=== PATIENT | male | born 1945 | race Caucasian/White ===

== ENCOUNTER 2018-01-15 12:09 | Emergency (ER) | payer OTHER, MEDICARE, BC ==
--- NOTE | 2018-01-15 12:24 | EDM.PDOC ---
ED HPI GENERAL MEDICAL PROBLEM - General Chief Complaint: General Stated Complaint: [id number] DIZZY THROWING UP Time Seen by Provider: 01/15/18 12:24 Source of Information: Reports: Patient, Family, Old Records, RN, RN Notes Reviewed History Limitations: Reports: No Limitations - History of Present Illness INITIAL COMMENTS - FREE TEXT/NARRATIVE: [place] with c/o waking at 0430HRS this morning with "room spin" dizziness. Pt states that when he tried to get up and any time he moves around, or lays flat on his back everything starts spinning, he gets nauseated and has vomited several times. He denies headache, visual changes, slurred speech, difficulty swallowing, sinus/nasal congestion, pain or pressure, muffled hearing or ear pain/pressure. He denies any orthostatic dizziness, palpitations, CP, SOB, edema, rapid or slow HR, lightheadedness or syncope. Pt states his mother has vertigo, and this seems similar. Pt lives in [place] and is here for a fishing tournament. Last evening his boat ride coming in was "very bouncy and rough" and he wonders if that may have "set off the dizziness". Onset: Today Duration: Recurring, Waxing/Waning Location: Reports: Generalized Quality: Reports: Other Severity: Severe Improves with: Reports: Rest (sitting still) Worsens with: Reports: Movement (and position) Associated Symptoms: Reports: No Other Symptoms - Related Data Allergies Allergy/AdvReac Type Severity Reaction Status Date / Time No Known Allergies Allergy Verified 01/15/18 12:22 Home Meds: Home Meds Atenolol/Chlorthalidone [Tenoretic 50 Tablet] 1 tab PO DAILY 01/15/18 [History] Brimonidine Tartrate/Timolol [Combigan Eye Drops] 2 drop OP DAILY 01/15/18 [ History] Brinzolamide [Azopt] 1 drop EYELF DAILY 01/15/18 [History] Fenofibrate 200 mg PO BEDTIME 01/15/18 [History] Latanoprost [Xalatan] 1 drop OP DAILY 01/15/18 [History] Levothyroxine [Sythroid] 100 mcg PO DAILY 01/15/18 [History] Lisinopril [Prinivil] 5 mg PO DAILY 01/15/18 [History] Pioglitazone HCl [Actos] 15 mg PO BEDTIME 01/15/18 [History] Potassium Chloride [Klor-Con 10] 10 meq PO BID 01/15/18 [History] Tadalafil [Cialis] 5 mg PO DAILY PRN 01/15/18 [History] atorvaSTATin [Lipitor] 0 mg PO DAILY 01/15/18 [History] glipiZIDE [Glipizide ER] 10 mg PO DAILY 01/15/18 [History] metFORMIN HCl [Metformin HCl] 1,000 mg PO BID 01/15/18 [History] Past Medical History HEENT History: Reports: Cataract, Glaucoma, Hard of Hearing Cardiovascular History: Reports: High Cholesterol, Hypertension Endocrine/Metabolic History: Reports: Diabetes, Type II, Hypothyroidism, Obesity /BMI 30+ - Past Surgical History HEENT Surgical History: Reports: Cataract Surgery (Rt) Social & Family History - Family History Neurological: Reports: Vertigo (mother) - Living Situation & Occupation Living situation: Reports: , with Spouse Occupation: Retired ED ROS GENERAL - Review of Systems Review Of Systems: ROS reveals no pertinent complaints other than HPI. ED EXAM, GENERAL - Physical Exam Exam: See Below Exam Limited By: No Limitations General Appearance: Alert, WD/WN, No Apparent Distress, Obese Eye Exam: Bilateral Eye: EOMI, Nystagmus (Rt lateral gaze), PERRL Ears: Normal External Exam, Hearing Grossly Normal (with hearing aids) Nose: Normal Inspection, Normal Mucosa, No Blood Throat/Mouth: Normal Inspection, Normal Lips, Normal Teeth, Normal Gums, Normal Oropharynx, Normal Voice, No Airway Compromise Head: Atraumatic, Normocephalic Neck: Normal Inspection, Supple, Non-Tender, Full Range of Motion Respiratory/Chest: No Respiratory Distress, Lungs Clear, Normal Breath Sounds, No Accessory Muscle Use, Chest Non-Tender Cardiovascular: Normal Peripheral Pulses, Regular Rate, Rhythm, No Edema, No Gallop, No JVD, No Murmur, No Rub GI/Abdominal: Normal Bowel Sounds, Soft, Non-Tender, Other (benign obese abdomen ) Extremities: Normal Inspection, Normal Range of Motion, Non-Tender, Normal Capillary Refill Neurological: Alert, Oriented, CN II-XII Intact (except for Rt lateral gaze nystagmus as noted above.), Normal Cognition, No Motor/Sensory Deficits Psychiatric: Normal Affect, Normal Mood Skin Exam: Warm, Dry, Intact, Normal Color, No Rash Course - Vital Signs Last Recorded V/S: Last Vital Signs Temp 36.6 C 01/15/18 12:22 Pulse 78 01/15/18 13:30 Resp 16 01/15/18 13:30 BP 135/66 01/15/18 13:30 Pulse Ox 93 L 01/15/18 13:30 - Orders/Labs/Meds Orders: Active Orders 24 hr Category Date Time Status Peripheral IV Care [RC] . DIRECTED Care 01/15/18 12:45 Active Head wo Cont [CT] Urgent Exams 01/15/18 12:48 Taken UA W/MICROSCOPIC [URIN] Stat Lab 01/15/18 12:45 Ordered Sodium Chloride 0.9% [Saline Flush] Med 01/15/18 12:45 Active 10 ml FLUSH ASDIRECTED PRN Peripheral IV Insertion Adult [OM.PC] Stat Oth 01/15/18 12:45 Ordered Medication Orders Sodium Chloride (Saline Flush) 10 ml FLUSH ASDIRECTED PRN PRN Reason: Keep Vein Open Last Admin: 01/15/18 12:51 Dose: 10 ml Labs: Laboratory Tests 01/15/18 01/15/18 01/15/18 Range/Units 12:45 12:48 12:48 WBC 6.9 (5.0-10.0) 10^3/uL RBC 4.45 L (4.6-6.2) 10^6/uL Hgb 13.7 L (14.0-18.0) g/dL Hct 40.2 (40.0-54.0) % MCV 90.3 (80-100) fL MCH 30.8 (27.0-34.0) pg MCHC 34.1 (33.0-35.0) g/dL Plt Count 220 (150-450) 10^3/uL Neut % (Auto) 76.3 H (42.2-75.2) % Lymph % (Auto) 17.2 L (20.5-50.1) % [place] % (Auto) 5.8 (2-8) % Eos % (Auto) 0.6 L (1.0-3.0) % Baso % (Auto) 0.1 (0.0-1.0) % Sodium 136 (135-145) mmol/L Potassium 3.6 (3.6-5.0) mmol/L Chloride 100 L (101-111) mmol/L Carbon Dioxide 27.0 (21.0-31.0) mmol/L Anion Gap 12.6 BUN 25 H (7-18) mg/dL Creatinine 1.2 (0.6-1.3) mg/dL Est Cr Clr Drug Dosing 61.01 mL/min Estimated GFR (MDRD) 60 BUN/Creatinine Ratio 20.83 Glucose 191 H (74-105) mg/dL Calcium 9.3 (8.4-10.2) mg/dl Magnesium 1.5 L (1.8-2.5) mg/dL Total Bilirubin 0.9 (0.2-1.0) mg/dL AST 32 (10-42) IU/L ALT 35 (10-60) IU/L Alkaline Phosphatase 39 L (42-121) IU/L Total Protein 7.4 (6.7-8.2) g/dl Albumin 4.3 (3.2-5.5) g/dl Globulin 3.1 Albumin/Globulin Ratio 1.39 Amylase 133 H (28-100) U/L Lipase 34 (22-51) U/L TSH, Ultra Sensitive (0.45-5.33) uIu/mL Urine Color Yellow (YELLOW) Urine Appearance Clear (CLEAR) Urine pH 7.0 (5.0-9.0) Ur Specific [place] 1.020 (1.005-1.030) Urine Protein 30 H (NEGATIVE) Urine Glucose (UA) >=1000 H (NEGATIVE) Urine Ketones Trace H (NEGATIVE) Urine Occult Blood Negative (NEGATIVE) Urine Nitrite Negative (NEGATIVE) Urine Bilirubin Negative (NEGATIVE) Urine Urobilinogen 4.0 H (0.2-1.0) mg/dL Ur Leukocyte Esterase Negative (NEGATIVE) Urine RBC 0-5 /HPF Urine WBC 0-5 (0-5/HPF) /HPF Ur Epithelial Cells Occasional /HPF Urine Bacteria Few (0-FEW/HPF) /HPF Urine Mucus Few H /LPF 01/15/18 Range/Units 12:48 WBC (5.0-10.0) 10^3/uL RBC (4.6-6.2) 10^6/uL Hgb (14.0-18.0) g/dL Hct (40.0-54.0) % MCV (80-100) fL MCH (27.0-34.0) pg MCHC (33.0-35.0) g/dL Plt Count (150-450) 10^3/uL Neut % (Auto) (42.2-75.2) % Lymph % (Auto) (20.5-50.1) % [place] % (Auto) (2-8) % Eos % (Auto) (1.0-3.0) % Baso % (Auto) (0.0-1.0) % Sodium (135-145) mmol/L Potassium (3.6-5.0) mmol/L Chloride (101-111) mmol/L Carbon Dioxide (21.0-31.0) mmol/L Anion Gap BUN (7-18) mg/dL Creatinine (0.6-1.3) mg/dL Est Cr Clr Drug Dosing mL/min Estimated GFR (MDRD) BUN/Creatinine Ratio Glucose (74-105) mg/dL Calcium (8.4-10.2) mg/dl Magnesium (1.8-2.5) mg/dL Total Bilirubin (0.2-1.0) mg/dL AST (10-42) IU/L ALT (10-60) IU/L Alkaline Phosphatase (42-121) IU/L Total Protein (6.7-8.2) g/dl Albumin (3.2-5.5) g/dl Globulin Albumin/Globulin Ratio Amylase (28-100) U/L Lipase (22-51) U/L TSH, Ultra Sensitive 2.84 (0.45-5.33) uIu/mL Urine Color (YELLOW) Urine Appearance (CLEAR) Urine pH (5.0-9.0) Ur Specific [place] (1.005-1.030) Urine Protein (NEGATIVE) Urine Glucose (UA) (NEGATIVE) Urine Ketones (NEGATIVE) Urine Occult Blood (NEGATIVE) Urine Nitrite (NEGATIVE) Urine Bilirubin (NEGATIVE) Urine Urobilinogen (0.2-1.0) mg/dL Ur Leukocyte Esterase (NEGATIVE) Urine RBC /HPF Urine WBC (0-5/HPF) /HPF Ur Epithelial Cells /HPF Urine Bacteria (0-FEW/HPF) /HPF Urine Mucus /LPF Meds: Medications Generic Name Dose Route Start Last Admin Trade Name Freq PRN Reason Stop Dose Admin Sodium Chloride 10 ml 01/15/18 12:45 01/15/18 12:51 Saline Flush FLUSH 10 ml ASDIRECTED PRN Administration Keep Vein Open Discontinued Medications Generic Name Dose Route Start Last Admin Trade Name Smith PRN Reason Stop Dose Admin Dexamethasone 10 mg 01/15/18 12:47 01/15/18 13:01 Dexamethasone IVPUSH 01/15/18 12:48 10 mg ONETIME ONE Administration Diazepam 5 mg 01/15/18 12:47 01/15/18 13:02 Valium IVPUSH 01/15/18 12:48 5 mg ONETIME ONE Administration Meclizine HCl 25 mg 01/15/18 12:47 01/15/18 13:01 Antivert PO 01/15/18 12:48 25 mg ONETIME ONE Administration - Radiology Interpretation Free Text/Narrative:: [facility] [place] [facility] Final Radiology Report Call: [phone] assistance Online chat: [email or web address] Name: GRISELDA RIOS Age: 72Years M Date: 01/15/2018 SSN: -- : [id number] Study: CT HEAD WO Requesting Physician: FUNMILAYO MONACO Images: 67 Addl Studies: Provided Clinical History: Contrast: Without Contrast Medium: Contrast Amount: Contrast Method: Page 1 of 2 EXAM: CT Head Without Intravenous Contrast CLINICAL HISTORY: The patient is a 72 years male; Signs and symptoms; Dizziness; Patient HX: Dizzy since he woke up this morning Examination order is timed 01/15/2018 1:14 PM. TECHNIQUE: Axial computed tomography images of the head/brain without intravenous contrast. All CT scans at this facility use at least one of these dose optimization techniques: automated exposure control; mA and/or kV adjustment per patient size (includes targeted exams where dose is matched to clinical indication); or iterative reconstruction. COMPARISON: No relevant prior studies available. FINDINGS: BRAIN: No acute hemorrhage. [place] white differentiation is intact. No evidence of acute territorial infarct. No evidence of extra-axial fluid collection. No evidence of mass. No evidence of mass effect or midline shift. No acute abnormality evident. VENTRICLES: Unremarkable as visualized. No ventriculomegaly. BONES/JOINTS: No acute fracture. SOFT TISSUES: Unremarkable as visualized. VASCULATURE: Calcification is noted in bilateral vertebral arteries. SINUSES: Small left frontal sinus osteoma. No acute sinusitis. GRISELDA RIOS | Final Radiology Report CONFIDENTIALITY STATEMENT This report is intended only for use by the referring physician, and only in accordance with law. If you received this in error, call [phone]. Page 2 of 2 MASTOID AIR CELLS: Mastoid air cells and middle ear cavities are well developed and well aerated. ORBITS: There is prior right cataract surgery. IMPRESSION: 1. No evidence of acute intracranial finding. Thank you for allowing us to participate in the care of your patient. Dictated and Authenticated by: Maribeth Thompson MD 01/15/2018 2:33 PM Central Time - Re-Assessments/Exams Free Text/Narrative Re-Assessment/Exam: 01/15/18 14:35 Pt with minimal improvement following Decadron 10mg IVP, Diazepam 5mg IVP, and [id number] po. I consulted Yuliana from PT to evaluate the pt for PT tx of vertigo. Pt's vertigo resolved following [place] [facility]. in ER. Departure - Departure Time of Disposition: 14:49 Disposition: Home, Self-Care 01 Condition: Good Clinical Impression: Vertigo - Discharge Information Instructions: Vertigo Forms: ED Department Discharge Additional Instructions: Rx: Meclizing 25mg *Do not drive while under the influence of this medication. Rest today, drink plenty of water. Return to ER if worse at any time. - My Orders Last 24 Hours: My Active Orders 01/15/18 12:45 Peripheral IV Care [RC] . DIRECTED UA W/MICROSCOPIC [URIN] Stat Sodium Chloride 0.9% [Saline Flush] 10 ml FLUSH ASDIRECTED PRN Peripheral IV Insertion Adult [OM.PC] Stat 01/15/18 12:48 Head wo Cont [CT] Urgent - Assessment/Plan Last 24 Hours: My Active Orders 01/15/18 12:45 Peripheral IV Care [RC] . DIRECTED UA W/MICROSCOPIC [URIN] Stat Sodium Chloride 0.9% [Saline Flush] 10 ml FLUSH ASDIRECTED PRN Peripheral IV Insertion Adult [OM.PC] Stat 01/15/18 12:48 Head wo Cont [CT] Urgent
[2018-01-15] MEDS ORDERED: Sodium Chloride 0.9% 10 ML Syringe FLUSH PRN (12:45)
[2018-01-15] MEDS ORDERED: Meclizine 12.5 MG Tab PO ONE (12:47)
[2018-01-15] MEDS ORDERED: Diazepam 5 MG/ML 10 ML Vial MDV IVPUSH ONE (12:47)
[2018-01-15] MEDS ORDERED: Dexamethasone 4 MG/ML SDV IVPUSH ONE (12:47)
[2018-01-15 13:25] LABS: ANION GAP 12.6
== END 2018-01-15 14:58 | disposition home or self-care (01) ==
LOC: DL.ED 12:09
DX: R42 Dizziness and giddiness (principal); E78.00 Pure hypercholesterolemia, unspecified; I10 Essential (primary) hypertension; E11.9 Type 2 diabetes mellitus without complications; E03.9 Hypothyroidism, unspecified; Z79.899 Other long term (current) drug therapy; Z79.84 Long term (current) use of oral hypoglycemic drugs
CPT/HCPCS: 36415; 70450; 80053; 81001; 82150; 83690; 83735; 84443; 85025; 96374; 96375; 99283; 99284; A9270; J1100; J3360; J7050